=== PATIENT | male | born 1935 | race Caucasian/White ===

== ENCOUNTER 2017-04-04 09:23 | Outpatient (CLI) | payer MEDICARE, BC ==
--- NOTE | 2017-04-04 11:38 | RAD ---
2 VIEW CHEST: Date: 04/04/17 HISTORY: Shortness of breath. Screening. Comparison made to prior exams from 2016 and 2015. FINDINGS: No evidence of infiltrate or vascular congestion. No effusion. A slightly asymmetric linear density in the right mid lung is probably vascular and stable. Heart size normal. Mediastinum unremarkable. Degenerative spine changes again noted. Radiopaque anchors are seen overlying both humeral heads. IMPRESSION: No acute process or interval change noted. POS: [facility]
== END 2017-04-04 09:24 | disposition home or self-care (01) ==
LOC: RAD 09:23
PROVIDERS: ATTEND Internal Medicine Critical Care Medicine
DX: R06.00 Dyspnea, unspecified (principal)
CPT/HCPCS: 71020

== ENCOUNTER 2017-07-04 14:13 | Outpatient (CLI) | payer MEDICARE, BC ==
--- NOTE | 2017-07-04 15:55 | RAD ---
FOUR VIEWS LUMBOSACRAL SPINE WITH BENDING: Comparison: 11-11-16, MRI lumbar spine 07-04-17. History: Bilateral leg pain, left greater than right. FINDINGS: AP, lateral, and flexion/extension views of the lumbosacral spine are performed. The patient has unde rgone fusion of L4 and L5 with bilateral screws. There is compression deformity of the L5 vertebral b corey with approximately 50% height loss. There is interval compression of the L1 vertebral body with a pproximately 25% height loss. There is stable anterolisthesis of L4 on L5. Laminectomies have been pe rformed at L4 and L5. IMPRESSION: 1. Stable post-surgical changes of the lower lumbosacral spine. 2. Interval wedge compression deformity of the L1 vertebral body. POS: [facility]
--- NOTE | 2017-07-04 15:59 | MRI ---
MRI OF THE LUMBAR SPINE WITHOUT AND WITH COTNRAST: COMPARISON: 12/29/16. HISTORY: Bilateral leg pain, left greater than right. No relief since surgery in 2017. TECHNIQUE: Multiplanar, multisequence MR images were obtained of the lumbar spine without and with IV contrast. FINDINGS: There are interval postsurgical changes of the lumbar spine. The patient is status post posterior fu rodrigo of L4 and L5 with bilateral pedicle screws. There is stable anterolisthesis of L4 on L5. Gener alized disk desiccation is seen. The L1 intervertebral disk demonstrates low T1 and high T2 signal c onsistent with a compression fracture. There is slight loss of height of this vertebral body of appr oximately 10-25%. The prevertebral soft tissues are unremarkable. The patient has had laminectomies in the lower lumbosacral spine at the area of fusion. No focal fluid collection is seen in the para spinal soft tissues. T12-L1: No significant bulge or protrusion. No posterior facet arthrosis. No central canal stenosi s. No neural foraminal stenosis. L1-2: No significant bulge or protrusion. No posterior facet arthrosis. No central canal stenosis. Mild bilateral neural foraminal stenosis. L2-3: Unremarkable. L3-4: A minimal disk-osteophyte complex is seen. No posterior facet arthrosis. Mild central canal stenosis. Mild to moderate bilateral neural foraminal stenosis. Evaluation of the neural foramen is limited secondary to artifact from the hardware. L4-5: There is prominence of the superior end plate of the L5 vertebral body into the central canal as was present before surgery. The posterior facets could not be evaluated secondary to hardware. N o central canal stenosis. Moderate to severe bilateral neural foraminal stenosis. Evaluation of the neural foramen is limited from the hardware. L5-S1: A small disk-osteophyte complex is seen. Mild bilateral posterior facet arthrosis. No centr al canal stenosis. Moderate bilateral neural foraminal stenosis. Evaluation of the neural foramen i s limited secondary to susceptibility artifact from the hardware. IMPRESSION: 1. Postsurgical changes of the lumbar spine without evidence of complication. 2. Persistent neural foraminal stenosis in the lower lumbosacral spine. 3. Interval wedge compression deformity of the L1 vertebral body. POS: [facility]
== END 2017-07-04 14:14 | disposition home or self-care (01) ==
LOC: SCSMRI 14:13
PROVIDERS: ATTEND Neurological Surgery
DX: M43.16 Spondylolisthesis, lumbar region (principal); M43.8X6 Other specified deforming dorsopathies, lumbar region; Z98.1 Arthrodesis status
CPT/HCPCS: 72120; 72158; 82565

== ENCOUNTER 2017-08-12 06:00 | Day surgery (SDC) | payer MEDICARE, BC ==
[2017-08-10 15:46] VITALS: BMI 25.7
[2017-08-12] MEDS ORDERED: Fentanyl 100 MCG/2 ML VIAL ONE (06:56)
[2017-08-12 07:05] LABS: Anion Gap 11 mmol/L (10-20); BUN (Urea Nitrogen) 17 mg/dL (8.4-25.7); Calc. Creatinine Clearance 69 mL/min (70-130); Calcium 9.5 mg/dL (7.8-10.44); Carbon Dioxide 24 mmol/L (23-31); Chloride 106 mmol/L (98-107); Estimated GFR-MDRD 69; Glucose 134 mg/dL (83-110); Potassium 3.9 mmol/L (3.5-5.1); Sodium 137 mmol/L (136-145)
--- NOTE | 2017-08-12 12:43 | OP ---
DATE OF PROCEDURE: 08/12/2017 PREOPERATIVE DIAGNOSIS: Wedge compression fracture, nonhealing L1. POSTOPERATIVE DIAGNOSIS: Wedge compression fracture, nonhealing L1. PROCEDURE: Percutaneous kyphoplasty with biopsy L1. ANESTHESIA: TIVA. COMPLICATIONS: None. SUMMARY: Risks and benefits were discussed informed consent was obtained. He was taken to the chemical laboratory tester, prepped and draped in standard fashion using DuraPrep. 1% lidocaine with 0.5% Marcaine with epi nephrine 1-400,000 was used for skin and subcutaneous anesthesia, which was raised under fluoroscopic guidance over the left pedicle. The supplied trocar was advanced. The supplied 11 gauge trocar was advanced down to the pedicle on the left side, using AP and lateral views ensure proper placement. A mallet was used to guide the trocar avoiding the medial wall of the pedicle under AP views. Upon e ntering the vertebral body, lateral views were obtained and advanced half cm. Biopsy was taken. Cur rafita sheath was placed with curved balloon. Balloon was placed. Sheath was withdrawn balloon was inf lated to total 215, but minimal reduction was noted. The balloon was then deflated with negative pre ssure removed. Sheath was removed and a curved injection trocar was then inserted through the 11 gau ge to cross the midline and MMA was then mixed and injected through the curved trocar. Final pattern is as per noted on AP and lateral imaging. Note that the right pedicle was not accessed due to pedi jeana edema noted on the MRI. The stylet was then replaced. Trocar was turned five rotations counterc lockwise and clockwise and then removed. Standard dressing. No complications.
[2017-08-12] MEDS ORDERED: Iopamidol 370 76% 50 ML VIAL FS ONE (12:56)
--- NOTE | 2017-08-12 13:23 | EKG ---
Test Reason : PREOP Blood Pressure : / mmHG Vent. Rate : 071 BPM Atrial Rate : 071 BPM P-R Int : 164 ms QRS Dur : 100 ms QT Int : 386 ms P-R-T Axes : 051 -34 000 degrees QTc Int : 419 ms Normal sinus rhythm Non-specific intra-ventricular conduction delay Left axis deviation Abnormal ECG Confirmed by RANDY WARNER ([id number]) on 08/12/2017 1:22:53 PM Referred By: MAGDALENE Confirmed By:RANDY WARNER
[2017-08-12] MEDS ORDERED: Propofol 200 MG/20 ML VIAL ONE (14:25)
[2017-08-12] MEDS ORDERED: Lidocaine 1% PF 5 ML VIAL ONE (14:25)
== END 2017-08-12 09:11 | disposition home or self-care (01) ==
LOC: SDC 06:00
PROVIDERS: ATTEND Anesthesiology Pain Medicine
PROC: 0QS03ZZ Reposition Lumbar Vertebra, Percutaneous Approach (ICD-10-PCS; principal; 2017-08-12)
PROC: 0QU03JZ Supplement Lumbar Vertebra with Synthetic Substitute, Percutaneous Approach (ICD-10-PCS; 2017-08-12)
PROC: 0QB03ZX Excision of Lumbar Vertebra, Percutaneous Approach, Diagnostic (ICD-10-PCS; 2017-08-12)
DX: S32.010A Wedge compression fracture of first lumbar vertebra, initial encounter for closed fracture (principal); M51.86 Other intervertebral disc disorders, lumbar region; Z88.0 Allergy status to penicillin; Z88.8 Allergy status to other drugs, medicaments and biological substances; Z98.890 Other specified postprocedural states
CPT/HCPCS: 22514; 80048; 88307; 88311; 93005; 93010; J2001; J2704; J3010

== ENCOUNTER 2018-02-06 09:30 | Inpatient (IN) | payer MEDICARE, BC ==
--- NOTE | 2018-02-08 16:51 | HP ---
CHIEF COMPLAINT: Lumbar back pain. 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 He had TLIF there. He began to suffer L5 radicular pains in the fall, b ut injections around the root were 100% effective. Unfortunately, they were also temporary. He retu rned to discuss any options for surgery. The pain is terrible that limit activities. He would like it to go away. REVIEW OF SYSTEMS: A 10-point review of systems has been completed and is negative other than stated above in the HPI. PAST MEDICAL HISTORY: Familial cerebellar ataxia, balance issues, hyperlipidemia, allergic rhinitis, BPH, colon polyps, kidney stones, sleep apnea, malignant hyperthermia - cousin , brother t ested positive, shingles, epididymal cysts, spermatocele, minimal diverticulosis coli, internal hemor rhoids, obesity, skin cancer, malignant hyperthermia, allergic rhinitis, Parkinson's. PAST SURGICAL HISTORY: Appendectomy, lumbar biopsy, cataracts, hip repair, L4-5 fusion, rotator cuff repair, gallbladder, laminectomy. FAMILY HISTORY: Father is , diagnosed with diabetes. Mother is , diagnosed with sae g cancer, bone cancer. Sibling tested testicular cancer, ataxia, malignant hyperthermia diagnosed wi th cancer. SOCIAL HISTORY: Patient is a nonsmoker, does not drink alcohol or use any other illicit drugs, rarel y drinks caffeine and has children. SURGICAL HOSPITAL HISTORY: See surgery. PHYSICAL EXAMINATION: NEUROLOGIC: Gait and station are normal. Leans forward on a walker, however, motor exam mild HE/EHL weakness on the right. Sensory exam, mild right L5 sensory alteration. RESPIRATORY: Normal work of breathing on room air. CARDIOVASCULAR: Regular rate and rhythm, normal S1, S2. CONSTITUTIONAL: Patient is alert and oriented, resting comfortably in our office in no visible distr ess at this time. IMAGING DATA: MRI foraminal stenosis at L5-S1 vertical stenosis with collapse of right L5 pedicle on L5 root above the sacrum. Flexion and extension x-rays stable. Lumbar radiculopathy. PLAN: Dr. Kiser has offered redo decompression and transforaminal lumbar interbody fusion to gen erate L5 foraminal height. INFORMED CONSENT: We have discussed the indications, risks, benefits, alternatives, and expected res ults from surgery. The risks discussed included, but were not limited to bleeding, infection, CSF le ak, nerve damage, weakness, incontinence, cauda equina injury, arachnoiditis, paralysis, ventilator d ependence, wheelchair dependence, loss of vision, heart murmurs cardiopulmonary complications o f anesthesia or . Long-term complications discussed included, but were not limited to degradati on of surrounding disks and the need for the surgery. The patient states he understands the risks an d is willing to proceed with surgery.
[2018-02-10] MEDS ORDERED: Sodium Chloride 0.9% 20 ML ONE (06:17)
[2018-02-10] MEDS ORDERED: Thrombin 5000 UNITS/5 ML VIAL ONE (06:17)
[2018-02-10] MEDS ORDERED: Bupivacaine HCl 0.5%/Epinephrine 1:200,000/PF 30 ml Vial ONE (06:17)
[2018-02-10] MEDS ORDERED: Clindamycin/D5W 900 mg/50 ml Premix Bag ONE (06:31)
[2018-02-10] MEDS ORDERED: Levofloxacin 500 mg/D5W 100 ml Premix Bag ONE (06:31)
[2018-02-10] MEDS ORDERED: Midazolam HCl 2 mg/2 ml Vial ONE (06:37)
[2018-02-10] MEDS ORDERED: Fentanyl 100 MCG/2 ML VIAL ONE ×6 (06:37→11:55)
[2018-02-10] MEDS ORDERED: Propofol 500 MG/50 ML VIAL ONE ×5 (06:47→10:54)
[2018-02-10] MEDS ORDERED: Ketamine 50 MG/ML VIAL ONE (08:01)
[2018-02-10] MEDS ORDERED: Propofol 1,000 MG/100 ML VIAL IV ONE (10:56)
[2018-02-10] MEDS ORDERED: PROPOFOL 20 ML ONE (12:28)
[2018-02-10] MEDS ORDERED: Promethazine HCl 25 MG/ML VIAL IM PRN ×2 (12:59→13:07)
[2018-02-10] MEDS ORDERED: Mag-Al 1200 mg/1200 mg/30 ML UDCUP PO PRN (12:59)
[2018-02-10] MEDS ORDERED: Fleet Enema 133 ML BOT PR PRN (12:59)
[2018-02-10] MEDS ORDERED: Acetaminophen 325 MG TAB PO PRN (12:59)
[2018-02-10] MEDS ORDERED: Bisacodyl 10 MG SUPP PR PRN (12:59)
[2018-02-10] MEDS ORDERED: diphenhydrAMINE 50 MG/ML VIAL IVP PRN (12:59)
[2018-02-10] MEDS ORDERED: Acetaminophen/Codeine 30-300mg Tablet PO PRN ×2 (12:59)
[2018-02-10] MEDS ORDERED: Acetaminophen 650 MG Suppository PR PRN (12:59)
[2018-02-10] MEDS ORDERED: Zolpidem Tartrate 5 MG TAB PO PRN (12:59)
[2018-02-10] MEDS ORDERED: Milk Of Magnesia 30 ML UDCUP PO PRN (12:59)
[2018-02-10] MEDS ORDERED: diphenhydrAMINE 25 MG CAP PO PRN (12:59)
[2018-02-10] MEDS ORDERED: tiZANidine HCl 4 MG TAB PO PRN (12:59)
[2018-02-10] MEDS ORDERED: Promethazine 25 MG TAB PO PRN (12:59)
[2018-02-10] MEDS ORDERED: SILDENAFIL CITRATE 25 MG PO PRN (13:04)
[2018-02-10] MEDS ORDERED: Promethazine HCl 25 MG/ML VIAL SLOW IVP PRN (13:07)
[2018-02-10] MEDS ORDERED: Ondansetron HCl/PF 4 MG/2 ML Vial IVP PRN (13:07)
--- NOTE | 2018-02-10 13:14 | OP ---
DATE OF OPERATION: 02/10/2018 NEUROSURGERY OPERATIVE NOTE SURGEON: Zachary Kiser M.D. PRECIPITATE WASHER: Marine Staton PA-C. PREOPERATIVE INDICATION: Treat pain, prevent neurological deterioration. PREOPERATIVE DIAGNOSES: Right-sided L5 radiculopathy from spondylolisthesis and severe foraminal dl nosis at L5-S1 on the right, prior L4-L5 fusion. POSTOPERATIVE DIAGNOSES: Right-sided L5 radiculopathy from spondylolisthesis and severe foraminal st enosis at L5-S1 on the right, prior L4-L5 fusion. OPERATIVE PROCEDURE: Reopening lumbar incision, exploration of fusion, removal of posterior hardware , repeat laminotomy, foraminotomy L5-S1, pedicle screw instrumentation S1, posterolateral segmental a rthrodesis L4-L5 and L5-S1, transforaminal lumbar interbody arthrodesis L5-S1, placement of intervert ebral biomechanical device L5-S1, local morselized autograft, morselized allograft. PREOPERATIVE MEDICATION: Clindamycin 900 mg IV and Levaquin 500 mg IV. DRAIN NUMBER: Zero. DRAIN TYPE: None. PROCEDURE IN DETAIL: The patient was brought to the operating room. General endotracheal was anesth esia was induced. The patient was positioned prone on the Sarkis frame with appropriate padding for the chest and hips. A lateral fluoro radiograph was used to confirm the previous incision would giv e us access from L4-S1 in the lumbosacral spine. The skin was sterilely prepped and draped. We open ed the previous incision with a 10 blade knife. We controlled bleeding with bipolar and monopolar ca utery. We used monopolar cautery to dissect through subcutaneous tissues to the thoracodorsal fascia . We incised the fascia in the midline and we reflected the paraspinal muscles and scar tissue off t he spinous process of L3 and S1 and from L4-S1, we dissected down the midline through scar tissue and then laterally to the facet joints. We carried our dissection over the facet joints until we could identify the L4 and L5 pedicle screws in both sides as well as the L5-S1 facet joint and the sacral a la bilaterally. We took a lateral fluoro radiograph to confirm the L5-S1 foramen bilaterally. We pl aced the self-retaining retractor and irrigated with bacitracin irrigation. We began our surgery wit h the decompression portion. Using a large straight curette, we dissected the scar tissue off the la teral aspect of the spinal canal. We started dissection of S1 and then using Kerrison rongeurs and c urettes generated a plane around the dura all the way to the inferior portion of L4 on both sides. I n this fashion, we could easily identify the L4 and L5 pedicles and the foramina at L5-S1. We perfor med foraminotomies over the exiting nerve roots. The right-sided nerve root was severely compressed. Here, we drilled out the entire L5-S1 facet joint. The superior articular process of S1 was direct ly compressing the posterior aspect of the L5 nerve root. In fact, the sharp point of the superior a rticular process of S1 on the right was digging into the nerve itself. We drilled the superior artic ular process off and removed it as a single specimen. The nerve immediately improved in its colorati on and anatomy. A left-sided L5 nerve root had no compression after foraminotomy. We turned our att ention now to instrumentation. Caps were removed from the L4 and L5 pedicles on both sides and the rods were removed as well. We in spected the fusion mass and although solid on the left side, it was not quite as solid on the right s iam. We dissected down again to the transverse processes of L4 and L5 bilaterally as well as the sac ral ala. This prepared as our posterolateral arthrodesis. We then used bony anatomic landmarks, pal pation of the medial portion of the pedicles and the lateral fluoro radiograph as our guide to place S1 pedicle screws. We drilled out our entry holes. We used the bone awl to advance through the pedi cles and then we tapped our trajectories. We found them completely encased in bone. We placed 6.5 m m diameter screws and took a 360-degree image set showing that our screws were slightly proud anterio rly. We removed our 6.5 mm screws and placed shorter 7.5 mm screws bilaterally. With the pedicle sc rews in place, we used a estiven to distract across the lumbosacral interspace on the right. This gave u s access to the disk space through the foramen. We incised the disk space and removed disk contents using curettes and rongeurs. We prepared for arthrodesis with curettes by removing the cartilaginous endplate from L5 and S1. We measured the height of the interspace to 15 mm. A 15 mm PEEK intervert ebral graft was brought into the field. This was advanced under radiographic guidance into the inter space to the appropriate depth. We then removed our temporary estiven from our system and placed longer rods in both sides and tightened caps over the rods. We used gentle compression across the lumbosacr al interspace before tightening our caps down with a [id number] mechanism. We ensured jam quate torsion on the caps. We then irrigated with bacitracin irrigation. With high speed drill, we decorticated the transverse processes of L4-L5 and the sacral ala bilaterally. We performed a industrial technology education teacher olateral arthrodesis by leaving demineralized bone matrix and morselized autograft over the decortica keyur bone. We irrigated the center of the wound once again with bacitracin irrigation. We treated th e wound with vancomycin powder and we closed in anatomic layers. This was a clean case and no contam ination.
[2018-02-10] MEDS ORDERED: Clindamycin/D5W 900 MG in Premix Bag 1 BAG IVPB SCH (14:00)
[2018-02-10] MEDS ORDERED: Dexamethasone 20 MG/5 ML VIAL ONE (14:42)
[2018-02-10] MEDS ORDERED: Lidocaine 1% PF 5 ML VIAL ONE (14:42)
[2018-02-10] MEDS ORDERED: Glycopyrrolate 0.2 MG/ML 5 ML SYRINGE ONE (14:42)
[2018-02-10] MEDS ORDERED: Ondansetron HCl/PF 4 MG/2 ML Vial ONE (14:42)
[2018-02-10] MEDS ORDERED: PROPOFOL 200 MG/20 ML VIAL ONE (14:42)
[2018-02-10] MEDS ORDERED: Labetalol 100 MG/20 ML MDV ONE (14:42)
[2018-02-10] MEDS ORDERED: Vecuronium 10 MG VIAL ONE (14:42)
[2018-02-10 15:52] VITALS: BMI 27.2
[2018-02-10] MEDS: Clindamycin/D5W 900 MG in Premix Bag 1 BAG IVPB SCH (17:44)
[2018-02-10] MEDS: Sodium Chloride 0.9% 1,000 ML IV SCH (18:02)
[2018-02-10] MEDS ORDERED: SAW PALMETTO 500 MG PO SCH (21:00)
[2018-02-10] MEDS: Ubidecarenone 50 MG CAP PO SCH (22:14)
[2018-02-10] MEDS: Metamucil PACK PO SCH (22:14)
[2018-02-11] MEDS: Clindamycin/D5W 900 MG in Premix Bag 1 BAG IVPB SCH (02:10)
[2018-02-11] MEDS: Sodium Chloride 0.9% 1,000 ML IV SCH ×2 (02:22→16:22)
[2018-02-11] MEDS: Vitami E (Dl,Tocopheryl Acet) 400 UNITS CAP PO SCH (09:40)
[2018-02-11] MEDS: Ubidecarenone 50 MG CAP PO SCH ×2 (09:41→20:44)
[2018-02-11] MEDS: Cyanocobalamin (Vitamin B-12) 1,000 MCG TAB PO SCH (09:41)
[2018-02-11] MEDS: Multivitamin W/ Minerals 1 TAB PO SCH (09:41)
[2018-02-11] MEDS: Lisinopril 5 MG TAB PO SCH (09:41)
[2018-02-11] MEDS: Metamucil PACK PO SCH ×2 (09:45→20:44)
[2018-02-11] MEDS: Alogliptin 6.25 MG TAB PO SCH (11:47)
--- NOTE | 2018-02-11 14:02 | PRG ---
DATE OF SERVICE: 02/11/2018 Mr. Watts is postoperative day 1 from lumbar decompression and fusion. He states he has no complain ts this morning. He has stood on edge of the bed and has even ambulated. He has excellent strength throughout his lower extremity myotomes, which is quite encouraging given a concern of dorsiflexor we akness preoperatively. He has a well fitting spinal orthotic in place. I discussed his home living situation with his family and his situation at home is he has a daughter, but is interested in evalua tion by inpatient rehabilitation and as such, we will arrange for this.
[2018-02-12] MEDS: Sodium Chloride 0.9% 1,000 ML IV SCH ×2 (01:13→16:13)
[2018-02-12] MEDS ORDERED: SAW PALMETTO 500 MG PO SCH (09:00)
[2018-02-12] MEDS: Ubidecarenone 50 MG CAP PO SCH (09:34)
[2018-02-12] MEDS: Multivitamin W/ Minerals 1 TAB PO SCH (09:35)
[2018-02-12] MEDS: Cyanocobalamin (Vitamin B-12) 1,000 MCG TAB PO SCH (09:35)
[2018-02-12] MEDS: Lisinopril 5 MG TAB PO SCH (09:36)
[2018-02-12] MEDS: Metamucil PACK PO SCH (09:37)
[2018-02-12] MEDS: Vitami E (Dl,Tocopheryl Acet) 400 UNITS CAP PO SCH (09:49)
[2018-02-12] MEDS: Alogliptin 6.25 MG TAB PO SCH (09:49)
--- NOTE | 2018-02-12 10:16 | PRG ---
DATE OF SERVICE: 02/12/2018 SUBJECTIVE: Mr. Watts is postoperative day #2 from lumbar decompression and fusion. He has excelle nt strength in his lower extremity myotomes and his right foot drop appears to have significantly imp roved. He has had serosanguineous drainage from his wound. On inspection of the wound dressing toda y, there is no evidence of active drainage. We will redress the wound and continue to monitor. Shou ld there be a continuation of wound drainage, we will consider antibiotics.
[2018-02-12 12:34] VITALS: TEMP 98.6
[2018-02-12 17:14] VITALS: BP 145/70
== END 2018-02-12 17:13 | DRG 460 ==
LOC: SURG A 02-10 05:35
PROVIDERS: ADMIT Neurological Surgery; ATTEND Neurological Surgery
PROC: 0SG30AJ Fusion of Lumbosacral Joint with Interbody Fusion Device, Posterior Approach, Anterior Column, Open Approach (ICD-10-PCS; principal; 2018-02-10)
PROC: 0QP004Z Removal of Internal Fixation Device from Lumbar Vertebra, Open Approach (ICD-10-PCS; 2018-02-10)
DX: M48.061 Spinal stenosis, lumbar region without neurogenic claudication (principal); M54.16 Radiculopathy, lumbar region; E78.5 Hyperlipidemia, unspecified; N40.0 Benign prostatic hyperplasia without lower urinary tract symptoms; Z86.010 Personal history of colon polyps; Z87.442 Personal history of urinary calculi; G47.30 Sleep apnea, unspecified; E66.9 Obesity, unspecified; Z85.828 Personal history of other malignant neoplasm of skin; G20 Parkinson's disease; M43.16 Spondylolisthesis, lumbar region
CPT/HCPCS: 36416; 76001; A4216; C1713; C1768; G8978-GP-CL; G8979-GP-CJ; J0670; J1100; J1956; J2001; J2250; J2405; J2704; J3010; J3370; J3490

== ENCOUNTER 2018-04-13 10:07 | Outpatient (CLI) | payer MEDICARE, BC ==
--- NOTE | 2018-04-13 12:34 | RAD ---
LUMBAR SPINE TWO VIEWS: HISTORY: Low back pain. COMPARISON: Lumbar films of 07/04/2017. FINDINGS: Compression deformity involving the L1 vertebra is again noted. There is evidence of vertebroplasty material within this vertebra, which has been placed since the prior study. There is anterior wedgin g of this vertebra with loss of anterior height greater than 50% but stable from the prior exam. Iva dging osteophyte anteriorly at T12-L1. Compression of the L5 vertebra is stable. There is anterolisthesis of L4 on L5, which is stable. Pe dicle screws are now seen at L4, L5, and S1, with an interbody implant at L5-S1, which has been place d since the prior study. Anterolisthesis at L5-S1 appears stable. IMPRESSION: 1. Anterolisthesis at L4-L5 and at L5-S1 with loss of disk space at these levels. Interbody implant at L5-S1 has been placed since the prior study. Pedicle screws are now seen at L4, L5, and S1. 2. Compression deformity at L1 is unchanged in degree. Vertebroplasty change at this vertebra is no w noted. POS: [facility]
== END 2018-04-13 10:08 | disposition home or self-care (01) ==
LOC: TBSIIMAG 10:07
PROVIDERS: ATTEND Neurological Surgery
DX: M54.5 Low back pain (principal); M43.16 Spondylolisthesis, lumbar region; M43.17 Spondylolisthesis, lumbosacral region; M43.8X6 Other specified deforming dorsopathies, lumbar region; Z98.890 Other specified postprocedural states
CPT/HCPCS: 72100

== ENCOUNTER 2018-05-01 08:53 | Outpatient (CLI) | payer MEDICARE, BC ==
--- NOTE | 2018-05-01 11:37 | RAD ---
CERVICAL SPINE FOUR VIEWS INCLUDING FLEXION AND EXTENSION LATERAL VIEWS: History: 82-year-old male with M54.12, chronic neck pain. FINDINGS: C6, C7, AND T1 are at least partially obscured on the lateral projections. C1 and odontoid regions ar e obscured on the AP view. No prevertebral soft tissue swelling. There is some disc osteophytosis luna nges. No abnormal translation between flexion and extension. IMPRESSION: Cervical spondylosis. No abnormal translation between flexion and extension. POS: [facility]
--- NOTE | 2018-05-01 13:29 | MRI ---
CERVICAL SPINE MRI WITHOUT CONTRAST: HISTORY: Chronic neck pain. COMPARISON: None. TECHNIQUE: Cervical spine MRI is performed without intravenous Gadolinium administration. Multisequential, mult iplanar imaging is performed. FINDINGS: Appropriate T1 marrow signal intensity of the cervical vertebrae. Cervical spine vertebral body heig ht is maintained. There is no fracture. No significant STIR hyperintensity to suggest vertebral bod y edema or ligamentous injury. Visualized brain parenchyma, cervicomedullary junction, cervical cord, and the upper thoracic cord zafar ve a normal size and signal intensity. C2-C3: No significant disk-osteophyte complex. No significant central canal stenosis. Foramen are patent. C3-C4: Broad-based disk-osteophyte complex with a central component that effaces the ventral subarac hnoid space. There is mild indentation of the midline ventral cord. No cord signal hyperintensity. Overall mild central canal stenosis. Degenerative changes of the right uncovertebral joint and righ t facet hypertrophy result in moderate right foraminal narrowing. Left neural foramen is patent. C4-C5: Broad-based disk-osteophyte complex abuts the thecal sac. Ventral subarachnoid space is main tained. There is mild central canal stenosis. Neural foramen are patent. C5-C6: Broad-based disk-osteophyte complex abuts the thecal sac. No significant central canal steno sis. Neural foramen are patent. There is right facet hypertrophy. C5-C6: There is moderate loss of disk space height. Generalized disk-osteophyte complex results in mild central canal stenosis. There is flattening of the ventral cord with mild indentation of the ve ntral cord. No cord hyperintensity. Neural foramen are patent. C7-T1: No significant disk-osteophyte complex. No significant central canal stenosis. Neural nupur en are patent. IMPRESSION: 1. 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 The greatest loss of disk space height is at 6- C7. Though there is some mass effect and indentation of the cervical cord at C3-C4, there is no cord signal abnormality throughout the cervical spine. 2. Varying degrees of neural foraminal narrowing as detailed above. No high-grade central canal dl nosis. POS: [facility]
== END 2018-05-01 08:54 | disposition home or self-care (01) ==
LOC: SCSMRI 08:53
PROVIDERS: ATTEND Neurological Surgery
DX: M47.892 Other spondylosis, cervical region (principal); M50.10 Cervical disc disorder with radiculopathy, unspecified cervical region; M99.81 Other biomechanical lesions of cervical region
CPT/HCPCS: 72050; 72141

== ENCOUNTER 2020-06-07 19:02 | Emergency (ER) | payer MEDICARE, BC ==
[2020-06-07] MEDS ORDERED: Lidocaine 1% w/Epinephrine 1:100K 20 ML VIAL ONE (19:22)
--- NOTE | 2020-06-07 19:50 | RAD ---
Exam: XR Finger(s) Rt Min 2 View HISTORY: Right thumb deformity and puncture wound. Injury after fall. COMPARISON: None FINDINGS: There is a comminuted fracture involving the base of the metacarpal right thumb with displacement and angulation as well as separation of fracture fragments. Distal fracture fragment is displaced proximally and laterally in relation to the more proximal fracture fragments and the trapezium. No ad ditional fracture is seen. 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 Subcutaneous emphysema and soft tissue swelling is seen about the thumb which may be related to fracture and/or la ceration. A tiny osseous density is seen just volar to the distal pole of the scaphoid bone. A very tiny avulsi on injury cannot be entirely excluded. IMPRESSION: 1. Comminuted, displaced, and fracture involving the base and proximal portion of the metac arpal right thumb. 2. Tiny osseous density just anterior to the distal pole scaphoid bone which could represent a very t iny avulsion injury involving the scaphoid bone. 3. Subcutaneous edema and soft tissue swelling about the thumb.
[2020-06-07] MEDS ORDERED: Lidocaine 2% PF 5 ML VIAL ONE (21:00)
[2020-06-07] MEDS ORDERED: Lidocaine 1% PF 5 ML VIAL ONE (21:00)
[2020-06-07] MEDS ORDERED: Lidocaine 1% (PF) 30 ML VIAL ONE (21:03)
--- NOTE | 2020-06-07 21:42 | CT ---
CT HEAD WITHOUT IV CONTRAST COMPARISON: 07/23/2015 HISTORY: Trauma. Recent increased and ataxia. Laceration to top of head. TECHNIQUE: Axial CT imaging at 5 mm intervals from vertex through skull base without contrast FINDINGS: There is decreased attenuation in the periventricular white matter which is nonspecific but likely re flective of chronic small vessel ischemic changes not significantly progressed from prior study. There is mild cerebral volume loss. The ventricular system is normal in size, shape, and position for the degree of sulcal atrophy. There is no evidence of an acute infarction, hemorrhage, mass effect, or midline shift. Skull base has a normal CT appearance. Visualized paranasal sinuses are clear. Osseous structures appear intact. There is skin clips seen at the vertex to the left of midline with adjacent scalp soft tissue swelling related to laceration in this region. IMPRESSION: 1. No acute intracranial abnormality demonstrated. 2. Chronic small vessel ischemic changes and cerebral volume loss. 3. Scalp laceration and hematoma to left of midline at the vertex.
[2020-06-07] MEDS ORDERED: HYDROcodone/Acetaminophen 10/325 mg Tablet ONE (21:43)
== END 2020-06-07 22:17 | disposition home or self-care (01) ==
LOC: ERS 19:02
DX: S62.211A Bennett's fracture, right hand, initial encounter for closed fracture (principal); S01.01XA Laceration without foreign body of scalp, initial encounter; E11.9 Type 2 diabetes mellitus without complications; I10 Essential (primary) hypertension; E78.5 Hyperlipidemia, unspecified; E78.00 Pure hypercholesterolemia, unspecified; W19.XXXA Unspecified fall, initial encounter
CPT/HCPCS: 12002; 26605; 70450; J2001

== ENCOUNTER 2020-07-09 08:53 | Outpatient (CLI) | payer MEDICARE, BC ==
--- NOTE | 2020-07-09 09:19 | RAD ---
EXAM: CHEST TWO VIEWS 07/09/2020 9:16 AM HISTORY: Dyspnea COMPARISON: April 04, 2017 FINDINGS: Lungs: No acute airspace consolidation. Heart: Normal in size and contour. Pulmonary Vessels: Normal. Costophrenic Angles: Clear. Pneumothorax: None. Osseous Structures: There is scattered degenerative and osteoarthritic change present. Additional Findings: None. IMPRESSION: No significant acute intrathoracic disease.
== END 2020-07-09 08:54 | disposition home or self-care (01) ==
LOC: BICRAD 08:53
PROVIDERS: ATTEND Internal Medicine Critical Care Medicine
DX: R06.00 Dyspnea, unspecified (principal)
CPT/HCPCS: 71046

== ENCOUNTER 2023-01-24 11:53 | Inpatient (IN) | payer MEDICARE, BC ==
[2023-01-24 12:39] LABS: #Basophils 0.1 thou/uL (0.0-0.2); #Monocytes 1.3 thou/uL (0.11-0.59); #Neutrophils 9.6 thou/uL (1.40-6.50); %Basophils 0.5 % (0.0-1.0); %Eosinophils 0.2 % (0.0-10.0); %Lymphocytes 9.5 % (21.0-51.0); %Monocytes 10.9 % (0.0-10.0); %Neutrophils 77.7 % (42.0-75.0); Hematocrit 38.1 % (42.0-52.0); Hemoglobin 12.8 g/dL (14.0-18.0); Mean Corpuscular HGB CONC 33.6 g/dL (32.0-36.0); Mean Corpuscular Hemoglobin 29.8 pg (27.0-31.0); Mean Corpuscular Volume 88.8 fl (78.0-98.0); Mean Platelet Volume 10.6 fL (7.4-10.4); Platelet Count 227 10x3/uL (130-400); RBC Distribution Width 13.1 % (11.5-14.5); Red Blood Cell (RBC) Count 4.29 mill/uL (4.70-6.10); White Blood Cell (WBC) Count 12.3 10x3/uL (4.8-10.8)
[2023-01-24 13:01] LABS: ALT (SGPT) 9 U/L (8-55); AST (SGOT) 11 U/L (5-34); Albumin 3.8 g/dL (3.4-4.8); Alkaline Phosphatase 94 U/L (40-110); Anion Gap 15 mmol/L (10-20); BUN (Urea Nitrogen) 13 mg/dL (8.4-25.7); Bilirubin, Total 0.5 mg/dL (0.2-1.2); Calc. Creatinine Clearance 0 mL/min (70-130); Calcium 8.6 mg/dL (7.8-10.44); Carbon Dioxide 22 mmol/L (23-31); Chloride 104 mmol/L (98-107); Estimated GFR 82; Globulin 2.6 g/dL (2.4-3.5); Glucose 216 mg/dL (83-110); Potassium 4.1 mmol/L (3.5-5.1); Protein, Total 6.4 g/dL (5.8-8.1); Sodium 137 mmol/L (136-145)
[2023-01-24 14:19] LABS: Bacteria/HPF None Seen HPF (None Seen); Bilirubin Negative (Negative); Blood, Urine Negative (Negative); CAUTI Indications for Culture Pelvic or flank pain; Clarity Clear (Clear); Glucose, Urine (Dipstick) 200 mg/dL (Negative); Ketone, Urine Negative (Negative); Leukocyte Negative Leu/uL (Negative); Nitrite Negative (Negative); Protein, Urine (Dipstick) 10 mg/dL (Neg-Trace); RBC/HPF 0-3 HPF (0-3); Specific Gravity, Urine 1.014 (1.002-1.036); Squamous Epithelial None Seen HPF (0-3); Urobilinogen Normal mg/dL (Less than 2); WBC/HPF 0-3 HPF (0-3); pH, Urine 5.5 (5.0-9.0)
[2023-01-24 14:23] LABS: Urine Culture Reflex No No
[2023-01-24] MEDS ORDERED: Aspirin Chewable 81 MG TAB ONE (15:36)
[2023-01-24] MEDS ORDERED: Glucagon 1 MG/ML KIT IM PRN (17:13)
[2023-01-24] MEDS ORDERED: Dextrose 5% in Water 1,000 ML IV PRN (17:13)
[2023-01-24] MEDS ORDERED: Dextrose 50% Abboject 50 ML SYRINGE SLOW IVP PRN (17:13)
[2023-01-24] MEDS ORDERED: HumaLOG 300 UNITS/3 ML VIAL SC PRN (17:13)
[2023-01-24 18:23] LABS: Troponin I 0.071 ng/mL (< 0.028)
[2023-01-24 21:18] LABS: Troponin I 0.071 ng/mL (< 0.028)
[2023-01-25 04:16] LABS: #Basophils 0.1 thou/uL (0.0-0.2); #Eosinphils 0.1 thou/uL (0.0-0.7); #Monocytes 1.3 thou/uL (0.11-0.59); #Neutrophils 8.1 thou/uL (1.40-6.50); %Basophils 0.5 % (0.0-1.0); %Eosinophils 0.6 % (0.0-10.0); %Lymphocytes 12.7 % (21.0-51.0); %Monocytes 11.7 % (0.0-10.0); %Neutrophils 74.1 % (42.0-75.0); Hematocrit 37.7 % (42.0-52.0); Hemoglobin 12.6 g/dL (14.0-18.0); Mean Corpuscular HGB CONC 33.4 g/dL (32.0-36.0); Mean Corpuscular Hemoglobin 29.6 pg (27.0-31.0); Mean Corpuscular Volume 88.5 fl (78.0-98.0); Mean Platelet Volume 11.3 fL (7.4-10.4); Platelet Count 231 10x3/uL (130-400); RBC Distribution Width 13.1 % (11.5-14.5); Red Blood Cell (RBC) Count 4.26 mill/uL (4.70-6.10); White Blood Cell (WBC) Count 10.9 10x3/uL (4.8-10.8)
[2023-01-25 04:23] LABS: Hemoglobin A1c 6.7 % (4.0-6.0)
[2023-01-25 04:41] LABS: Anion Gap 13 mmol/L (10-20); BUN (Urea Nitrogen) 10 mg/dL (8.4-25.7); Calc. Creatinine Clearance 0 mL/min (70-130); Carbon Dioxide 23 mmol/L (23-31); Chloride 104 mmol/L (98-107); Estimated GFR 85; Glucose 185 mg/dL (83-110); Potassium 3.6 mmol/L (3.5-5.1); Sodium 136 mmol/L (136-145)
[2023-01-25 05:24] VITALS: BMI 25.0
[2023-01-25 07:49] LABS: Magnesium 1.7 mg/dL (1.6-2.6)
[2023-01-25] MEDS ORDERED: Magnesium 2 GM/50 ML(in water) 2 GM in Premix Bag 1 BAG IVPB SCH (10:15)
[2023-01-25] MEDS ORDERED: Potassium Chloride 20 MEQ TAB PO SCH (10:15)
[2023-01-25] MEDS ORDERED: Amiodarone 150 MG, Admixture Fee 1 EACH in Dextrose 5% in Water 100 ML IVPB SCH (11:15)
[2023-01-25] MEDS ORDERED: Amiodarone 450 MG in Dextrose 5% in Water 250 ML IVPB SCH (11:30)
[2023-01-26 05:43] LABS: #Basophils 0.1 thou/uL (0.0-0.2); #Eosinphils 0.1 thou/uL (0.0-0.7); #Monocytes 1.2 thou/uL (0.11-0.59); #Neutrophils 7.4 thou/uL (1.40-6.50); %Basophils 0.7 % (0.0-1.0); %Eosinophils 0.9 % (0.0-10.0); %Lymphocytes 15.1 % (21.0-51.0); %Monocytes 11.5 % (0.0-10.0); %Neutrophils 71.3 % (42.0-75.0); Hematocrit 37.1 % (42.0-52.0); Hemoglobin 12.4 g/dL (14.0-18.0); Mean Corpuscular HGB CONC 33.4 g/dL (32.0-36.0); Mean Corpuscular Hemoglobin 29.9 pg (27.0-31.0); Mean Corpuscular Volume 89.4 fl (78.0-98.0); Platelet Count 268 10x3/uL (130-400); RBC Distribution Width 12.9 % (11.5-14.5); Red Blood Cell (RBC) Count 4.15 mill/uL (4.70-6.10); White Blood Cell (WBC) Count 10.4 10x3/uL (4.8-10.8)
[2023-01-26 06:07] LABS: Anion Gap 14 mmol/L (10-20); BUN (Urea Nitrogen) 11 mg/dL (8.4-25.7); Calc. Creatinine Clearance 72 mL/min (70-130); Carbon Dioxide 23 mmol/L (23-31); Chloride 104 mmol/L (98-107); Estimated GFR 84; Glucose 157 mg/dL (83-110); Potassium 4.2 mmol/L (3.5-5.1); Sodium 137 mmol/L (136-145)
[2023-01-26] MEDS: Empagliflozin 10 MG TAB PO SCH (08:05)
[2023-01-26] MEDS: Lisinopril 2.5 MG TAB PO SCH (08:05)
[2023-01-26] MEDS: Amiodarone 200 MG TAB PO SCH ×2 (14:39→20:51)
[2023-01-27] MEDS: Lisinopril 2.5 MG TAB PO SCH (08:28)
[2023-01-27] MEDS: Amiodarone 200 MG TAB PO SCH ×3 (08:28→20:55)
[2023-01-27] MEDS: Empagliflozin 10 MG TAB PO SCH (08:28)
[2023-01-28 04:48] LABS: Anion Gap 16 mmol/L (10-20); BUN (Urea Nitrogen) 21 mg/dL (8.4-25.7); Calc. Creatinine Clearance 58 mL/min (70-130); Calcium 9.3 mg/dL (7.8-10.44); Carbon Dioxide 21 mmol/L (23-31); Chloride 106 mmol/L (98-107); Estimated GFR 70; Glucose 138 mg/dL (83-110); Potassium 3.9 mmol/L (3.5-5.1); Sodium 139 mmol/L (136-145)
[2023-01-28] MEDS: Amiodarone 200 MG TAB PO SCH ×2 (10:04→16:31)
[2023-01-28] MEDS: Empagliflozin 10 MG TAB PO SCH (10:04)
[2023-01-28] MEDS: Lisinopril 2.5 MG TAB PO SCH (10:04)
[2023-01-28 15:31] VITALS: BP 122/65; TEMP 97.3
== END 2023-01-28 19:30 | DRG 281 ==
LOC: ERS 11:53 → 2NO 15:35 → OBSVTOIN 01-25 17:09
PROVIDERS: ADMIT Internal Medicine; ATTEND Internal Medicine
DX: I47.20 Ventricular tachycardia, unspecified (principal); I21.A1 Myocardial infarction type 2; I42.9 Cardiomyopathy, unspecified; R26.2 Difficulty in walking, not elsewhere classified; E11.9 Type 2 diabetes mellitus without complications; E78.5 Hyperlipidemia, unspecified; Z96.641 Presence of right artificial hip joint; Z96.651 Presence of right artificial knee joint; R27.0 Ataxia, unspecified; G47.33 Obstructive sleep apnea (adult) (pediatric); Z88.8 Allergy status to other drugs, medicaments and biological substances; Z88.0 Allergy status to penicillin; Z91.09 Other allergy status, other than to drugs and biological substances; Z79.899 Other long term (current) drug therapy; Z87.442 Personal history of urinary calculi; Z85.828 Personal history of other malignant neoplasm of skin; Z82.49 Family history of ischemic heart disease and other diseases of the circulatory system
CPT/HCPCS: 36415; 36416; 70450; 71045; 72125; 80048; 80053; 81001; 82553; 82607; 83036; 83735; 84443; 84484; 85025; 93005; 94660; 96372; J1650; J1815; J3475

== ENCOUNTER 2023-02-16 21:31 | Emergency (ER) | payer MEDICARE, BC ==
[2023-02-16 22:25] LABS: #Basophils 0.1 thou/uL (0.0-0.2); #Eosinphils 0.1 thou/uL (0.0-0.7); #Monocytes 0.8 thou/uL (0.11-0.59); %Basophils 0.7 % (0.0-1.0); %Eosinophils 1.3 % (0.0-10.0); %Lymphocytes 13.1 % (21.0-51.0); %Monocytes 7.6 % (0.0-10.0); %Neutrophils 76.8 % (42.0-75.0); Hematocrit 40.9 % (42.0-52.0); Hemoglobin 13.6 g/dL (14.0-18.0); Mean Corpuscular HGB CONC 33.3 g/dL (32.0-36.0); Mean Corpuscular Hemoglobin 29.6 pg (27.0-31.0); Mean Corpuscular Volume 88.9 fl (78.0-98.0); Mean Platelet Volume 11.1 fL (7.4-10.4); Platelet Count 235 10x3/uL (130-400); RBC Distribution Width 13.5 % (11.5-14.5); White Blood Cell (WBC) Count 10.4 10x3/uL (4.8-10.8)
[2023-02-16 22:47] LABS: ALT (SGPT) 9 U/L (8-55); AST (SGOT) 13 U/L (5-34); Albumin 4.1 g/dL (3.4-4.8); Alkaline Phosphatase 88 U/L (40-110); Anion Gap 16 mmol/L (10-20); BUN (Urea Nitrogen) 18 mg/dL (8.4-25.7); Bilirubin, Total 0.3 mg/dL (0.2-1.2); Calc. Creatinine Clearance 0 mL/min (70-130); Calcium 9.4 mg/dL (7.8-10.44); Carbon Dioxide 22 mmol/L (23-31); Chloride 104 mmol/L (98-107); Estimated GFR 59; Globulin 2.6 g/dL (2.4-3.5); Glucose 201 mg/dL (83-110); Potassium 4.5 mmol/L (3.5-5.1); Protein, Total 6.7 g/dL (5.8-8.1); Sodium 137 mmol/L (136-145)
[2023-02-16 22:51] LABS: Troponin I 0.028 ng/mL (< 0.028)
== END 2023-02-17 04:11 ==
LOC: ERS 21:31
DX: S00.81XA Abrasion of other part of head, initial encounter (principal); S40.011A Contusion of right shoulder, initial encounter; E11.9 Type 2 diabetes mellitus without complications; E78.00 Pure hypercholesterolemia, unspecified; I10 Essential (primary) hypertension; W18.30XA Fall on same level, unspecified, initial encounter; Z79.899 Other long term (current) drug therapy
CPT/HCPCS: 36415; 70450; 71045; 72125; 80053; 84484; 85025; 93005